=== PATIENT | male | born 1950 | race Caucasian/White ===

== ENCOUNTER 2025-04-08 07:33 | Outpatient (CLI) | payer MEDICARE, BC, SELFPAY ==
--- NOTE | ~2025-04-08 | PE_ITS ---
EXAMINATION: PET_PETPSMAST_PT DATE: 04/08/2025 09:40 INDICATION: Prostate cancer TECHNIQUE: 5.249 mCi of Illucix Ga-68([id number]) was administered i.v. Low dose computed boyd graphy (CT) images were acquired from the base of the brain to the base of the brain to the proximal thighs for attenuation correction and anatomic localization. Positron emission tomography (PET) image s were acquired in the same distribution beginning 91 minutes after injection. Images including fused PET/CT images were reconstructed in axial, coronal, and sagittal planes. Automated exposure control technique was employed. The dose-length product was 1197.89mGy-cm. COMPARISON: None FINDINGS: Head/neck: Typical pattern of symmetric physiologic increased activity in the lacrimal, parotid and submandibula r glands as well as along the mucosa of the nasal and oral cavities, pharynx and hypopharynx. No path ologically enlarged cervical lymphadenopathy or suspicious foci of increased uptake in the visualized head or neck. Chest: Discoid atelectasis at the bilateral lung bases. Small calcified nodule at the right lung base consis tent with old granulomatous disease. No suspicious pulmonary nodules, pneumonia, pulmonary edema or p leural effusion. Heart size is normal. Sclerotic coronary artery calcification. Thoracic aorta is nor mal in caliber. No pathologically enlarged or PSMA avid thoracic lymphadenopathy. Small sliding-type hiatal hernia. Abdomen/pelvis/proximal thighs: Physiologic renal accumulation and excretion of activity in the kidneys, bladder and along portions o f ureters. There are numerous brachytherapy seeds at the prostate. There are 2 subcentimeter foci of increased uptake posteriorly in the inferior prostate, the first near the midline with maximal SUV of 7.1 and second on the right with maximal SUV of 7.5. Normal degree and slightly heterogenous pattern of increased uptake throughout the liver and spleen without radiologic correlate or dominant PSMA av id lesion. Couple small gallstones in the dependent aspect of the normal-appearing gallbladder. The p ancreas and bilateral adrenal glands are normal. Moderate uptake scattered throughout the bowels with typical duodenal and proximal jejunal predominance and without radiologic correlate, also likely phy siologic. Normal appendix. No other abnormal foci of increased uptake or pathologically enlarged lymp hadenopathy in the abdomen, pelvis or proximal thighs. Musculoskeletal: Left total hip arthroplasty. There are chronic appearing compression fractures at L1, L3 and L4. No s uspicious lytic, blastic or abnormally PSMA avid bone lesions. IMPRESSION: 1. Brachytherapy seeds in the prostate with 2 small foci of uptake posterior inferior aspect of the p rostate suspicious for residual prostate cancer. No other lesions suspicious for metastatic disease. Reviewed, dictated and finalized at location A. IMPRESSION: 1. Brachytherapy seeds in the prostate with 2 small foci of uptake posterior in ferior aspect of the prostate suspicious for residual prostate cancer. No other lesions suspicious for metastatic disease.
== END 2025-04-08 07:34 | disposition home or self-care (01) ==
LOC: ANHIMG 07:41
PROVIDERS: Visit Provider Urology
DX: C61 Malignant neoplasm of prostate (principal); Z92.3 Personal history of irradiation
CPT/HCPCS: 78815; A9596